=== PATIENT | male | born 1990 | race Caucasian/White ===

== ENCOUNTER 2019-06-15 11:28 | Inpatient (IN) | payer BC ==
[~2019-06-15] VITALS: Ht 180.3 cm; Wt 108.7 kg
[2019-06-15 11:38] VITALS: BP 142/98
[2019-06-15 13:32] LABS: BASO % 0.5 % (0.0-1.0); EOS # 0.1 10*3/uL (0.0-0.4); EOS % 0.6 % (1.0-4.0); HEMATOCRIT 54.3 % (42.0-52.0); HEMOGLOBIN 17.9 g/dl (14.0-18.0); LYMPH # 1.5 10*3/uL (1.3-4.4); LYMPH % 17.8 % (27.0-41.0); MEAN CELL VOLUME 92.2 fl (80.0-94.0); MEAN CORPUSCULAR HGB 30.4 pg (27.0-31.0); MEAN PLATELET VOLUME 10.8 fl (9.6-12.3); MONO # 0.5 10*3/uL (0.1-1.0); MONO % 5.8 % (3.0-9.0); NEUT # 6.3 10*3/uL (2.3-7.9); NEUT % 74.9 % (47.0-73.0); PLATELET COUNT AUTOMATED 279 10*3/uL (130-400); RED BLOOD COUNT 5.89 10*6/uL (4.50-5.90); RED CELL DISTRI WIDTH 12.2 % (0-14.5); WHITE BLOOD COUNT 8.4 10*3/uL (4.8-10.8)
[2019-06-15 13:48] LABS: ALKALINE PHOSPHATASE 97 U/L (45-117); BUN 8 mg/dl (7-24); CHLORIDE 98 mmol/L (98-107); CREATININE 1.21 mg/dL (0.70-1.30); LIPASE 72 U/L (73-393); POTASSIUM 3.8 mmol/L (3.5-5.1); SGOT/AST 115 IU/L (3-35); SGPT/ALT 173 U/L (12-78); SODIUM 133 mmol/L (136-145); TOTAL PROTEIN 9.1 gm/dL (6.4-8.2)
[2019-06-15 14:03] LABS: CLARITY CLOUDY (CLEAR); COLOR YELLOW (YELLOW)
[2019-06-15 14:04] LABS: BILIRUBIN 1+ (NEGATIVE); BLOOD NEGATIVE (NEGATIVE); GLUCOSE NEGATIVE (NEGATIVE); KETONE 2+ (NEGATIVE)
[2019-06-15 14:05] LABS: BACTERIA 1+; EPITHELIAL CELLS TNTC; LEUKO ESTERASE 1+ (NEGATIVE); NITRITE NEGATIVE (NEGATIVE); RBC 0-2 rbc/hpf (0-2); UROBILINOGEN 0.2 E.U./dl (0.2-1.0)
--- NOTE | 2019-06-15 15:48 | NUR ---
PT REFUSING NG TUBE. KELLY LIZ NOTIFIED.
[2019-06-15 17:43] VITALS: BP 141/95
--- NOTE | 2019-06-15 17:43 | NUR ---
A 28, admitted to , under the services of MADI Wilkins DO with a diagnosis of SMALL BOWEL OBSTRUCTION. Chief complaint is NAUSEA, VOMITING DIARHEA. Patient arrived via WHEEL CHAIR from ER. Monitor applied. Initial assessment completed. Vital signs taken and recorded. MADI WILKINS DO notified of admission to the unit. Orders received. See assessment for past medical history, medications and allergies. Patient and/or family oriented to unit. [facility]. Clothing/patient valuable form completed. ERIC ALBARADO
--- NOTE | 2019-06-15 18:15 | NUR ---
PLACED NG TUBE PER ORDER, LARGE AMOUT OF BRIGHT GREEN FLUID POURED OUT IMMEDIATELY, NG TUBE TAPED IN PLACE, ATTACHED TO LOW INT SUCTION.
--- NOTE | 2019-06-15 19:54 | NUR ---
CALLED DR BLACK TO VERIFY ORDERS. HE STATES TO TAKE NG TUBE OFF OF SUCTION AT THIS TIME AND ADMINISTER THE ORAL CONTRAST VIA NG TUBE. STATES TO LEAVE THE TUBE CLAMPED UNTIL AFTER CT SCAN. STATES THAT WHEN PATIENT RETURNS FROM SCAN TO PUT TUBE BACK TO SUCTION AND TO CALL HIM WITH THE RESULTS.
[2019-06-15 20:00] VITALS: BP 120/76
--- NOTE | 2019-06-15 20:28 | NUR ---
1,000CC OF ORAL CONTRAST GIVEN VIA NG TUBE PER ORDER. PATIENT TOLERATED WELL
--- NOTE | 2019-06-15 20:40 | NUR ---
DR BORDEN AWARE OF PATIENT HAVING BRIGHT RED BLOODY EMESIS.
--- NOTE | 2019-06-15 22:05 | NUR ---
PATIENT OFF FLOOR TO CT
--- NOTE | 2019-06-15 22:19 | NUR ---
PATIENT BACK FROM CT. FLUIDS INFUSING PER ORDER. NG TUBE INTACT TO LOW INTERMITTENT SUCTION PER DR BLACK. SCDS INTACT. PATIENT DENIES ANY ABDOMINAL PAIN AT THIS TIME. BED IN LOWEST POSITION, CALL LIGHT IN REACH
--- NOTE | 2019-06-15 22:42 | NUR ---
DR BLACK CALLED AND UPDATED OF CT SCAN RESULTS AND BLOODY EMESIS. NO ORDERS TAKEN AT THIS TIME,
--- NOTE | 2019-06-15 23:55 | NUR ---
PATIENT SITTING UP IN BED WATCHING TV. NG TUBE SUCTIONING PER ORDER. PATIENT STATES HE HAS HAD ANOTHER LARGE EMESIS, DENIES BLOOD. DENIES PAIN OR ANXIETY AT THIS TIME. NO SIGNS OF ALCOHOL WITHDRAWAL. BED IN LOWEST POSITION, CALL LIGHT IN REACH
[2019-06-16] VITALS (9 sets, daily range): BP systolic 123–155; BP diastolic 78–108
--- NOTE | 2019-06-16 01:32 | NUR ---
PATIENT REQUESTING SOMETHING FOR PAIN. DR BORDEN AWARE
--- NOTE | 2019-06-16 01:51 | NUR ---
MEDICATED WITH ONE TIME MORPHINE PER ORDER FOR C/O ABDOMINAL PAIN RATED 7/10 ON A 0/10 PAIN SCALE. WILL MONITOR
--- NOTE | 2019-06-16 03:40 | NUR ---
PATIENT C/O ABDOMINAL PAIN. STATES MORPHINE WAS NOT EFFECTIVE. PATIENT IS IN VISIBLE DISTRESS. DR BORDEN MADE AWARE. ORDER TAKEN FOR DILAUDID
--- NOTE | 2019-06-16 04:06 | NUR ---
PATIENT MEDICATED WITH ONE TIME DILAUDID PER ORDER. PATIENT IS HOLDING ON TO BED RAILS AND STATES HE IS HAVING A SHARP PAIN ON THE LEFT SIDE OF HIS ABDOMEN AND HE FEELS LIKE "CRYING". WILL MONITOR FOR EFFECTIVENESS
--- NOTE | 2019-06-16 05:13 | NUR ---
PATIENT RESTING IN BED WITH EYES CLOSED. RESPS EASY AND REGULAR. BED IN LOWEST POSITION, CALL LIGHT IN REACH
[2019-06-16 06:14] LABS: BASO % 0.2 % (0.0-1.0); EOS % 0.1 % (1.0-4.0); HEMATOCRIT 51.4 % (42.0-52.0); HEMOGLOBIN 16.8 g/dl (14.0-18.0); LYMPH # 0.9 10*3/uL (1.3-4.4); LYMPH % 10.3 % (27.0-41.0); MEAN CELL VOLUME 93.5 fl (80.0-94.0); MEAN CORPUSCULAR HGB 30.5 pg (27.0-31.0); MEAN CORPUSCULAR HGB CONC 32.7 g/dl (33.0-37.0); MEAN PLATELET VOLUME 10.9 fl (9.6-12.3); MONO # 0.6 10*3/uL (0.1-1.0); MONO % 7.1 % (3.0-9.0); NEUT % 82.1 % (47.0-73.0); PLATELET COUNT AUTOMATED 278 10*3/uL (130-400); RED CELL DISTRI WIDTH 12.1 % (0-14.5); WHITE BLOOD COUNT 8.5 10*3/uL (4.8-10.8)
[2019-06-16 06:34] LABS: ALBUMIN 3.7 gm/dl (3.1-4.5); ALKALINE PHOSPHATASE 87 U/L (45-117); BUN 8 mg/dl (7-24); CHLORIDE 99 mmol/L (98-107); CHOLESTEROL 193 mg/dL (<200); CREATININE 1.15 mg/dL (0.70-1.30); HDL CHOLESTEROL 39 mg/dl (40-60); LDL CHOLESTEROL 134 mg/dL (9-159); PHOSPHOROUS 4.4 mg/dL (2.5-4.9); POTASSIUM 4.3 mmol/L (3.5-5.1); SGOT/AST 82 IU/L (3-35); SGPT/ALT 144 U/L (12-78); SODIUM 134 mmol/L (136-145); TOTAL PROTEIN 8.3 gm/dL (6.4-8.2); TRIGLYCERIDES 101 mg/dl (<150); VLDL CHOLESTEROL 20 mg/dL (6-40)
[2019-06-16 06:39] LABS: FREE T4 1.09 ng/dl (0.76-1.46)
[2019-06-16 06:46] LABS: ACT PARTIAL THROMBO TIME 26.8 SECONDS (20.0-32.1)
--- NOTE | 2019-06-16 07:00 | NUR ---
ARRIVED ON SHIFT, PATIENT SLEEPING, SIDE RAILS UP X 2, BED INN LOW POSITION WHEEL LOCKS ENGAGED, CALL LIGHT WITHIN REACH, NG TUBE DRAINING WITH LIS IV FLUIDS RUNNING, WHITE BOARD UPDATED.
[2019-06-16 07:36] LABS: VITAMIN D, 25-HYDROXY 9.4 ng/mL (30-100)
--- NOTE | 2019-06-16 08:13 | NUR ---
PATIENT C/O OF ABDOMINAL PAIN 10/10 CRAMPING, STABBING,GRABBING PAIN MEDICATED WITH DILAUDID ORDERED.
--- NOTE | 2019-06-16 09:00 | NUR ---
Salesforce Specialist in to talk to patient. Patient states lives at home with alone. There are 4 steps in the home. Physician: none at present Pharmacy: [facility] Home health services: none Patient's level of ADLs: INDEPENDENT Patient has working utilities: all working DME: none Follow-up physician's appointment after d/c: will be made by hospitalist nurse director with doctor of patient's choice Does patient want to access PORTAL?: no Discharge plan discussed with patient, he lives at home alone, he is independent in adls and ambulation, works, drives, states he will return home when medically stable and denies any home needs. ABEL FUENTES
--- NOTE | 2019-06-16 09:08 | NUR ---
PATIENT REPORTS SOME RELIEF DROM DILAUDID PAIN NOW 08/01
--- NOTE | 2019-06-16 09:32 | NUR ---
OFF FLOOR FOR SURGERY
--- NOTE | 2019-06-16 12:42 | NUR ---
DR. BLACK ON UNIT, HE ADVISED TO KEEP PT NPO, EXCEPT FOR ICE CHIPS, HE VERSED THEY PUT JUAREZ CATHETER IN AND IF STILL IN WHEN ARRIVES ON FLOOR TO LEAVE IN UNTIL TOMORROW. ALSO CONTINUE WITH NG TUBE ORDERED PREVIOUSLY, WILL REASSESS TOMORROW. AWAITING FOR PATIENT TO RETURN TO FLOOR.
--- NOTE | 2019-06-16 18:55 | NUR ---
RECEIVED CALL FROM DR. BLACK, HE INQUIRED HOW MUCH DRAINAGE CAME OUT FROM NG TUBE, ADVISED THAT HE HAD 25-50 CC OUT SINCE RETURNING TO THE FLOOR POST OP, ADVISED TO REMOVE, KEEP NPO EXCEPT FOR ICE CHIPS, HE WILL FOLLOW UP TOMMOROW, WENT DOWN TO ROOM AND REMOVED NG, PATIENT TOLERATED WELL.
--- NOTE | 2019-06-16 21:20 | NUR ---
PATIENT RESTING IN BED WITH NO NEEDS MADE. DENIES PAIN AT THIS TIME. DROWSY. BED IN LOW POSITION, CALL LIGHT IN REACH
[2019-06-17] VITALS: BP 132/90
--- NOTE | 2019-06-17 05:16 | NUR ---
HOME MEDS FROM PHARMACY GIVEN TO PATIENT. HEART MONITOR REMOVED. PATIENT TAKEN OUT VIA [facility] WITH ALL BELONGINGS. HEP LOCKS REMAINED INTACT.
[2019-06-17 06:23] LABS: BASO % 0.2 % (0.0-1.0); EOS # 0.1 10*3/uL (0.0-0.4); EOS % 1.2 % (1.0-4.0); HEMATOCRIT 47.2 % (42.0-52.0); LYMPH % 23.4 % (27.0-41.0); MEAN CELL VOLUME 93.5 fl (80.0-94.0); MEAN CORPUSCULAR HGB 29.7 pg (27.0-31.0); MEAN CORPUSCULAR HGB CONC 31.8 g/dl (33.0-37.0); MEAN PLATELET VOLUME 10.7 fl (9.6-12.3); MONO # 0.4 10*3/uL (0.1-1.0); MONO % 10.4 % (3.0-9.0); NEUT # 2.7 10*3/uL (2.3-7.9); NEUT % 64.8 % (47.0-73.0); PLATELET COUNT AUTOMATED 220 10*3/uL (130-400); RED BLOOD COUNT 5.05 10*6/uL (4.50-5.90); WHITE BLOOD COUNT 4.2 10*3/uL (4.8-10.8)
[2019-06-17 06:46] LABS: ALBUMIN 3.2 gm/dl (3.1-4.5); BUN 7 mg/dl (7-24); CHLORIDE 104 mmol/L (98-107); SGOT/AST 58 IU/L (3-35); SGPT/ALT 95 U/L (12-78); SODIUM 137 mmol/L (136-145)
[2019-06-17 06:47] LABS: ALKALINE PHOSPHATASE 69 U/L (45-117); TOTAL PROTEIN 7.5 gm/dL (6.4-8.2)
[2019-06-17 08:00] VITALS: BP 169/98
--- NOTE | 2019-06-17 08:03 | NUR ---
PT MEDICATED WITH PRN DILAUDID FOR C/O ABDOMINAL PAIN. PT RATES PAIN 11/01. WILL MONITOR.
--- NOTE | 2019-06-17 09:00 | NUR ---
case management visits with patient, he will return home when medically stable and denies any home needs, case management will follow
--- NOTE | 2019-06-17 09:00 | NUR ---
PRN DILAUDID EFFECTIVE PER PT.
--- NOTE | 2019-06-17 10:15 | NUR ---
PT UP AMBULATING IN ROOM.
[2019-06-17 12:00] VITALS: BP 156/94
--- NOTE | 2019-06-17 12:06 | NUR ---
PT MEDICATED WITH PRN DILAUDID FOR C/O MID-ABDOMINAL PAIN. PT RATES PAIN 10. WILL MONITOR.
[2019-06-17 16:00] VITALS: BP 148/98
--- NOTE | 2019-06-17 16:32 | NUR ---
patient medicated with po norco for pain in stomach rated 4/10. Patient also medicated with scheduled IVP ativan.
--- NOTE | 2019-06-17 19:45 | NUR ---
24 HR chart check completed.
[2019-06-17 20:00] VITALS: BP 131/96
--- NOTE | 2019-06-17 20:10 | NUR ---
PT RESTING ON BED WITH EASY RESPIRATIONS AT THIS TIME. NO DISTRESS NOTED. POST OP ABDOMINAL DISTENTION NOTED WITH PT REPORTING PAIN /. PT AWARE OF PAIN MEDIACTIONS ORDERED AND SCHEDULE. URINAL BOTTLE AT BEDSIDE CALL LIGHT WITHIN REACH. RN TO CONTINUE TO MONITOR. PT CONTINUES WITH CLEAR LIQUID DIET.
--- NOTE | 2019-06-17 22:49 | NUR ---
PT RESTING QUIETLY REPORTS SOME RELIEF OF PAIN.
[2019-06-18] VITALS: BP 131/97
--- NOTE | 2019-06-18 04:06 | NUR ---
SCHEDULED IV ATIVAN GIVEN AT THIS TIME. NO S/S WITHDRAWALS. PT HAS NO C/O OF SYMPTOMS, NO C/O PAIN. WILL CONT TO MONITOR. DENISE GORDILLO IN REACH.
[2019-06-18 06:59] LABS: ALBUMIN 3.3 gm/dl (3.1-4.5); ALKALINE PHOSPHATASE 71 U/L (45-117); BUN 5 mg/dl (7-24); CHLORIDE 101 mmol/L (98-107); CREATININE 0.86 mg/dL (0.70-1.30); POTASSIUM 3.6 mmol/L (3.5-5.1); SGOT/AST 55 IU/L (3-35); SGPT/ALT 91 U/L (12-78); SODIUM 136 mmol/L (136-145)
[2019-06-18 08:00] VITALS: BP 146/92
--- NOTE | 2019-06-18 09:00 | NUR ---
case management visits with patient, he states he will return home when medically stable and denies any home needs, case management will follow
--- NOTE | 2019-06-18 09:10 | NUR ---
NORCO GIVEN FOR C/O ABDM PAIN. RATES 6/10 ON PAIN SCALE. WILL MONITOR.
--- NOTE | 2019-06-18 10:15 | NUR ---
NORCO APPEARS EFFECTIVE. PT RESTING IN BED WITH EYES CLOSED.
[2019-06-18 12:00] VITALS: BP 136/88
[2019-06-18 16:00] VITALS: BP 146/95
--- NOTE | 2019-06-18 16:54 | NUR ---
DULCOLAX GIVEN FOR C/O CONSTIPATION. WILL MONITOR.
--- NOTE | 2019-06-18 19:53 | NUR ---
PTS CO FEELING NAUSEOUS. MEDICATED WITH PRN ZOFRAN ORDERED WILL CHECK EFFECTIVENESS. CALL LIGHT WITHIN REACH.
[2019-06-18 20:00] VITALS: BP 130/90
--- NOTE | 2019-06-18 21:00 | NUR ---
PT STATES ZOFRAN WAS EFFECTIVE. WILL CONTINUE TO MONITOR.
[2019-06-19] VITALS: BP 137/88
--- NOTE | 2019-06-19 03:18 | NUR ---
24 HR chart check completed.
[2019-06-19 07:12] LABS: ALBUMIN 3.3 gm/dl (3.1-4.5); BUN 8 mg/dl (7-24); CHLORIDE 97 mmol/L (98-107); CREATININE 0.88 mg/dL (0.70-1.30); POTASSIUM 3.5 mmol/L (3.5-5.1); SGOT/AST 40 IU/L (3-35); SGPT/ALT 82 U/L (12-78); SODIUM 133 mmol/L (136-145)
[2019-06-19 07:13] LABS: ALKALINE PHOSPHATASE 69 U/L (45-117); TOTAL PROTEIN 8.2 gm/dL (6.4-8.2)
[2019-06-19 08:00] VITALS: BP 87/63
--- NOTE | 2019-06-19 09:00 | NUR ---
case management visits with patient, he will return home when medically stable and denies any home needs
[2019-06-19 12:00] VITALS: BP 137/89
[2019-06-19 16:00] VITALS: BP 153/100
--- NOTE | 2019-06-19 16:32 | NUR ---
C/o vomiting due to feelings of pressure after eating lunch. States pain started at 345 along with pressure. States he thought he may have a bm but after diarrehea stool, he still was experiencing a lot of pressure and he ended up vomiting. Medicated with zofran at this time and explained to pt that I would notify Dr. Mcginnis.
--- NOTE | 2019-06-19 16:40 | NUR ---
Notified Dr. Mcginnis of pt complaints of vomiting. Pt had stated that he last ate regular food at 1140. States that at about 345 pm he started to develop abdominal pain above his umbilicus. States that he felt a lot of pressure felt like he had to have a bm, after having diarrhea stool he vomited. States he is still having pain. Notified Dr. Mcginnis of these statements. Orders for NPO, no water, IVF ordered, and continue iv tylenol. No further order for pain meds.
--- NOTE | 2019-06-19 18:15 | NUR ---
Pt up in the bathroom at this time. States pain has settled some but not much. States he is currently having a bm.
[2019-06-19 20:00] VITALS: BP 144/98
--- NOTE | 2019-06-19 20:40 | NUR ---
MEDICATED WITH ATIVAN FOR C/O ANXIETY; PT. DRINKS 14-24 BEERS DAILY. PT. REQUESTING PAIN MEDICATION. INFORMED PATIENT THAT I WOULD CALL THE DR. PT. VERBALIZED UNDERSTANDING.
--- NOTE | 2019-06-19 21:47 | NUR ---
CALLED DR. VELEZ PER PT'S REQUEST FOR PAIN MEDICATION. DR. VELEZ STATED THAT THEY WOULD NOT ORDER OPIATES THIS WOULD CONSTIPATE PATIENT. THIS RN INFOMRED PATIENT OF THIS; PT. VERBALIZED UNDERSTANDING.
--- NOTE | 2019-06-19 22:28 | NUR ---
DR. BLACK CALLED IN TO CHECK ON PT. UPDATED ON PATIENT. TO KEEP PATIENT NPO BUT PATIENT MAY HAVE A FEW ICE CHIPS BUT IS NOT ALLOWED TO DRINK/EAT ANYTHING ELSE.
--- NOTE | 2019-06-19 22:40 | NUR ---
RESTING IN BED WITH EYES CLOSED; AROUSES EASILY UPON ENTERING ROOM. STATES ATIVAN HELPED HIM SOMEWHAT. CALL LIGHT WITHIN REACH.
--- NOTE | 2019-06-20 04:41 | NUR ---
MEDICATED WITH ATIVAN FOR C/O ANXIETY.
--- NOTE | 2019-06-20 06:00 | NUR ---
ASLEEP; ATIVAN EFFECTIVE. CALL LIGHT WITHIN REACH.
[2019-06-20 06:57] LABS: BASO % 0.4 % (0.0-1.0); EOS # 0.1 10*3/uL (0.0-0.4); EOS % 1.3 % (1.0-4.0); HEMATOCRIT 47.3 % (42.0-52.0); HEMOGLOBIN 15.7 g/dl (14.0-18.0); LYMPH # 1.6 10*3/uL (1.3-4.4); LYMPH % 22.6 % (27.0-41.0); MEAN CELL VOLUME 92.2 fl (80.0-94.0); MEAN CORPUSCULAR HGB 30.6 pg (27.0-31.0); MEAN CORPUSCULAR HGB CONC 33.2 g/dl (33.0-37.0); MEAN PLATELET VOLUME 11.2 fl (9.6-12.3); MONO % 13.5 % (3.0-9.0); NEUT # 4.4 10*3/uL (2.3-7.9); NEUT % 61.9 % (47.0-73.0); PLATELET COUNT AUTOMATED 323 10*3/uL (130-400); RED BLOOD COUNT 5.13 10*6/uL (4.50-5.90); RED CELL DISTRI WIDTH 11.9 % (0-14.5); WHITE BLOOD COUNT 7.1 10*3/uL (4.8-10.8)
[2019-06-20 07:13] LABS: BUN 10 mg/dl (7-24); CHLORIDE 99 mmol/L (98-107); CREATININE 0.93 mg/dL (0.70-1.30); POTASSIUM 3.3 mmol/L (3.5-5.1); SODIUM 134 mmol/L (136-145)
[2019-06-20 08:00] VITALS: BP 139/95
--- NOTE | 2019-06-20 08:08 | NUR ---
ATTEMPTED TO CALL DR BLACK BACK TO INFORM HIM ON HOW PATIENT IS FEELING, NO ANSWER. WILL TRY BACK
--- NOTE | 2019-06-20 08:35 | NUR ---
SPOKE TO DR BLACK ON THE PHONE HE STATES TO START THE PATIENT ON A FULL LIQUID DIET AT THIS TIME AND TO TALK TO THE PATIENT AND DO WHAT HE CAN HANDLE BEFORE THINKING OF GOING TO A REGULAR DIET. WILL ADD ORDERS
--- NOTE | 2019-06-20 08:47 | NUR ---
DR MURPHY IN TO SEE PATIENT
--- NOTE | 2019-06-20 11:02 | NUR ---
PT STATES HE IS HAVING ABDOMINAL PAIN RATING IT A 4/10. STARTING IBUPROFEN AT THIS TIME. CALL LIGHT WITHIN REACH, WILL CONTINUE TO MONITOR
--- NOTE | 2019-06-20 11:17 | NUR ---
IV ATIVAN GIVEN AT THIS TIME PER PT REQUEST. WILL CONTINUE TO MONITOR
[2019-06-20 12:00] VITALS: BP 146/91
--- NOTE | 2019-06-20 13:21 | NUR ---
Shift chart check completed.
[2019-06-20 16:00] VITALS: BP 154/108
--- NOTE | 2019-06-20 16:49 | NUR ---
DR BLACK CALLED AND STATES TO LEAVE PATIENT FULL LIQUID DIET FOR THE DAY AND POSSIBLY TOMORROW HE WILL BE CHANGED
[2019-06-20 20:00] VITALS: BP 129/88
--- NOTE | 2019-06-20 21:00 | NUR ---
MEDICATED WITH RESTORIL & ATIVAN PER PT'S REQUEST.
[2019-06-21] VITALS: BP 137/95
--- NOTE | 2019-06-21 01:00 | NUR ---
RESTING IN BED WITH EYES CLOSED. RESTORIL/ATIVAN GIVEN EARLIER APPARENTLY EFFECTIVE. CALL LIGHT WITHIN REACH.
[2019-06-21 06:50] LABS: BASO % 0.4 % (0.0-1.0); EOS # 0.1 10*3/uL (0.0-0.4); EOS % 1.1 % (1.0-4.0); HEMATOCRIT 46.1 % (42.0-52.0); HEMOGLOBIN 15.6 g/dl (14.0-18.0); LYMPH # 1.5 10*3/uL (1.3-4.4); LYMPH % 17.3 % (27.0-41.0); MEAN CELL VOLUME 89.7 fl (80.0-94.0); MEAN CORPUSCULAR HGB 30.4 pg (27.0-31.0); MEAN CORPUSCULAR HGB CONC 33.8 g/dl (33.0-37.0); MEAN PLATELET VOLUME 11.2 fl (9.6-12.3); MONO # 0.9 10*3/uL (0.1-1.0); NEUT % 69.8 % (47.0-73.0); PLATELET COUNT AUTOMATED 338 10*3/uL (130-400); RED BLOOD COUNT 5.14 10*6/uL (4.50-5.90); RED CELL DISTRI WIDTH 11.8 % (0-14.5); WHITE BLOOD COUNT 8.6 10*3/uL (4.8-10.8)
[2019-06-21 07:01] LABS: BUN 8 mg/dl (7-24); CHLORIDE 102 mmol/L (98-107); CREATININE 0.82 mg/dL (0.70-1.30); POTASSIUM 3.3 mmol/L (3.5-5.1); SODIUM 135 mmol/L (136-145)
[2019-06-21 08:00] VITALS: BP 140/104
--- NOTE | 2019-06-21 10:55 | NUR ---
Dr. Mcginnis called for an update on patient. Not able to provide information and to call physician back.
--- NOTE | 2019-06-21 11:40 | NUR ---
Called back and updated him on patients request to go home. Per physician after seen by rounding surgeon if cleared for discharge patient can control annalee with over the counter tylenol or ibueprofen. Do to [facility] virus patient to call office with any concerns and no need for follow up. He is not to lift over 15lbs for 2 more weeks. He may return to regular diet and activity as tolerated, no restrictions with steps.
--- NOTE | 2019-06-21 11:41 | NUR ---
Ativan given per patient request for c/o anxiety. Will monitor.
[2019-06-21 12:00] VITALS: BP 133/91
[2019-06-21 16:00] VITALS: BP 152/100
--- NOTE | 2019-06-21 17:50 | NUR ---
Notified that patient does not want to be discharged tonight. He wants to wait for the morning.
[2019-06-21 20:00] VITALS: BP 142/100
--- NOTE | 2019-06-21 21:38 | NUR ---
PATIENT MEDICATED WITH PRN RESTORIL AND ATIVAN. STATES HE DOES NOT WANT BOTHERED THE REST OF THE NIGHT. STATES NOT TO COME IN FOR HIS MIDNIGHT VITALS. PATIENT WAS EDUCATED ON HIS BLOOD PRESSURE BEING ELEVATED. PATIENT STATES "IT IS ALWAYS HIGH AND I DO NOT NEED IT RETAKEN."
[2019-06-22 06:51] LABS: BUN 8 mg/dl (7-24); CHLORIDE 104 mmol/L (98-107); CREATININE 0.75 mg/dL (0.70-1.30); POTASSIUM 3.1 mmol/L (3.5-5.1); SODIUM 136 mmol/L (136-145)
[2019-06-22 08:00] VITALS: BP 128/94
--- NOTE | 2019-06-22 09:13 | NUR ---
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 Faxed updated clinicals for review.
--- NOTE | 2019-06-22 11:40 | NUR ---
PATIENT DISCHARGED TO HOME.
== END 2019-06-22 11:40 | disposition home or self-care (01) | DRG 336 ==
LOC: ED 11:28 → EDHOLD 15:59 → 4E 15:59 → EDHOLD 16:29 → 4E 17:26
PROVIDERS: Internal Medicine; Physician Assistant; Student in an Organized Health Care Education/Training Program; Surgery; ADMIT Internal Medicine
PROC: 0D9670Z Drainage of Stomach with Drainage Device, Via Natural or Artificial Opening (ICD-10-PCS; 2019-06-15)
PROC: 0DNH4ZZ Release Cecum, Percutaneous Endoscopic Approach (ICD-10-PCS; principal; 2019-06-16)
PROC: 0DNB4ZZ Release Ileum, Percutaneous Endoscopic Approach (ICD-10-PCS; principal; 2019-06-16)
DX: K56.600 Partial intestinal obstruction, unspecified as to cause (principal); E87.1 Hypo-osmolality and hyponatremia; K21.9 Gastro-esophageal reflux disease without esophagitis; R73.9 Hyperglycemia, unspecified; F10.10 Alcohol abuse, uncomplicated; R03.0 Elevated blood-pressure reading, without diagnosis of hypertension; E87.6 Hypokalemia; E55.9 Vitamin D deficiency, unspecified; K76.0 Fatty (change of) liver, not elsewhere classified; D70.9 Neutropenia, unspecified; Z91.013 Allergy to seafood